=== PATIENT | female | born 1990 | race Caucasian/White ===

== ENCOUNTER 2016-05-11 09:25 | Inpatient (IN) | payer OTHER ==
[~2016-05-11] VITALS: Ht 167.6 cm; Wt 78.0 kg
[~2016-05-11 09:25] MED LIST: ASCORBIC ACID; FERR-74; Ibuprofen PO; PREN1TAB47
[2016-05-11] MEDS ORDERED: fentaNYL-PF 50 mCg/mL 2 mL Inj IVPUSH PRN ×2 (09:55→18:40)
[2016-05-11] MEDS ORDERED: Ondansetron 2 mg/mL 2 mL Inj IVPUSH PRN ×2 (09:55→18:40)
[2016-05-11] MEDS ORDERED: Oxytocin 10 Unit/mL Inj IM PRN (09:55)
[2016-05-11] MEDS ORDERED: Carboprost 250 mCg/mL Inj IM PRN (09:55)
[2016-05-11] MEDS ORDERED: Methylergonovine 0.2 mg/mL Inj IM PRN (09:55)
[2016-05-11] MEDS ORDERED: Hemorrhage Kit, Post Partum XX ONE (09:55)
[2016-05-11] MEDS ORDERED: Oxytocin 30 Units/500 mL LR 30 UNITS in IV Premix 1 EACH IV PRN ×2 (09:55→20:25)
[2016-05-11] MEDS ORDERED: Sodium Chloride LOK Flush 10 mL Syringe IVFLUSH PRN (09:55)
[2016-05-11 10:25] LABS: Mean Corpuscular Hemoglobin 27.8 pg (27.0-35.0); Mean Corpuscular Volume 86.7 fL (81-100)
[2016-05-11] MEDS: Misoprostol 25 mCg/0.25 Tablet VAGINAL SCH ×3 (16:11→23:25)
[2016-05-11] MEDS ORDERED: Lactated Ringer's 500 ML IV ONE (18:39)
[2016-05-11] MEDS ORDERED: fentaNYL 2 mCg/mL-Bupiv 0.125% 100 ML EPIDURAL SCH (18:40)
[2016-05-11] MEDS ORDERED: EPHEDrine Sulfate 50 mg/mL Inj IVPUSH PRN (18:40)
[2016-05-11] MEDS ORDERED: Atropine 1 mg/10 mL (Code) Syringe IVPUSH PRN (18:40)
--- NOTE | 2016-05-11 18:43 | PCM.HPANE ---
Patient Data Date of Service: May 11, 2016 Surgeon Admitting Provider:Maximo Monterroso MD Attending Provider:Maximo Monterroso MD Primary Care Physician:Maximo Monterroso MD Other Provider:Gerardo Thayer Anesthesia Reason for Visit Term Early Labor TERM EARLY LABOR Ht/WT & BMI Body Mass Index Allergies Coded Allergies: Sulfa (Sulfonamide Antibiotics) (Verified Allergy, Unknown, 05/11/16) Diabetes History Hx Diabetes?: No Medications Hypertension Medication: No Reported Medications Vit/Fe Fumarate/Fa-Expunged Drug, Do (-Expunged Drug, Do Not Renew!)1 Tab Tablet Daily 07/01/10 Discontinued Reported Medications [vit c 250 bid] No Conflict Check 07/01/10 Ferrous Sulfate-Expunged Drug, Do Not Renew! (Feosol-Expunged Drug, Do Not Renew !)1 Tab Tablet Bid 07/01/10 Discontinued Scripts [Ibuprofen] (Motrin)600 MG TABLET No Conflict [id number] Mg PO Q6H PRN For Mild Pain Prov:Maximo Monterroso MD 07/02/14 History History of ENT Problems?: No Hx of Heart Problems?: No Hx of Respiratory Problem?: No Hx Neurologic Problems?: No Hx of GI Problems?: No Hx of Problems?: No HX of Peritoneal Dialysis: No Female Hx: Positive for:: Currently Hx Musculoskeletal Problems?: No Hx of Psycho/Social Problems?: No Hx Diabetes: No Smoking Status: Never Smoker Stop/Bang Treated for Sleep Apnea?: No Do You Have a CPAP Machine?: No S-Snoring: Do You Snore Loudly: No T-Tired: feel tired, fatigued: No O-Obsered: Observed not breath: No P-Blood Pressure: treated: No B- Body Mass Index > 35 kg/m2: No A- Age over 50: No N- Neck Large Circumference: No G- Gender Male: No ALEXX Risk Assessment: Low Risk, <3 Yes Risk Assessment Category Category 1A: Patient has history of documented sleep apnea, and HAS NOT received any narcotic, sedative or anesthesia administration during this stay. Category 1B: Patient has history of documented sleep apnea, and HAS received any narcotic , sedative or anesthesia administration during this stay Category 2: Patient has SUSPECTED Obstructive Sleep Apnea, and HAS received any narcotic , sedative or anesthesia administration during this stay. Category 3: Patient has SUSPECTED Obstructive Sleep Apnea and HAS NOT received narcotic, sedative or anesthesia administration during this stay. Category 4: Outpatient in Procedural Areas with known sleep apnea or who screen positive for High Risk via the STOP/BANG questionnaire. Exam Exam General Appearance: Alert, Oriented X3, Cooperative, No Acute Distress HEENT/AIRWAY: MP 2 Lungs: Clear to Auscultation, Normal Air Movement Heart: Exam Unremarkable, Regular Rate/Rhythm, No Murmurs/Rubs/Gallops Meds/Labs/Diagnostics Admission Meds Current Medications Misoprostol (Cytotec) 25 mcg Q4H VAGINAL Last administered on 05/11/16t 16:11; Start 05/11/16 at 15:25 Labs Test 05/11/16 10:10 White Blood Count 11.4th/mm3 (3.8-10.1) Red Blood Count 3.99mil/mm3 (3.90-5.20) Hemoglobin 11.1g/dL (12.0-15.6) Hematocrit 34.6% (35.0-46.0) Mean Corpuscular Volume 86.7fL (81-100) Mean Corpuscular Hemoglobin 27.8pg (27.0-35.0) Mean Corpuscular Hemoglobin Concent 32.1% (32.0-37.0) Red Cell Distribution Width 13.9% (12.3-15.4) Platelet Count 256bil/L (150-400) Plan Impression Patient chart reviewed, patient interviewed and anesthestic plan with risks, benefits, and alternatives discussed, and informed consent obtained. ASA Physical Status: ASA1 Plus Emergency Anesthetic Plan: Epidural Bene/Risks/Altern/Consents: Yes HP Complete Prior to Induction: Yes Viraj Mo MD May 11, 2016 18:42
[2016-05-11] MEDS: Lactated Ringer's 1,000 ML IV SCH ×2 (20:42→22:17)
--- NOTE | 2016-05-11 23:46 | HP ---
[address] [address] HISTORY AND PHYSICAL PATIENT: CLEMENTINA ZAMORA : 1990 MR#: [id number] ADMIT: 05/11/2016 JOB ID: [id number] CHIEF COMPLAINT: "I think I broke my water." HISTORY OF PRESENT ILLNESS: This is a 26-year-old obstetrical patient of mine who is a 7, para 4, at 38 and 2 weeks estimated gestational age who presents to labor and delivery complaining of a big gush of clear fluid from her vagina at about 740 this morning. She has not been having any contractions. She has felt the baby move every day and has no other acute complaints. Upon evaluation in triage, she was found to be grossly ruptured with the baby showing active heart tracing and having very few uterine contractions. Her cervix was noted to be 1 cm long and soft with baby in vertex but high position. She was admitted for expectant management with premature rupture of membranes. PAST OBSTETRICAL HISTORY: Her course has been unremarkable. Her labs: Her blood type is A-positive. Rubella immune. Serology is nonreactive. She is negative to hepatitis B, hepatitis C, HIV and antibody screen. Hematocrit at eight weeks was 38.4 and at 29 weeks was 32. 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 She was chlamydia and gonorrhea negative. On initial evaluation, her Pap showed HPV with ASCUS. She declined colposcopy during the and wishes to pursue it afterwards. Her MSAFP test was performed and was negative. A 28 weeks she had diabetic screen that was negative and antibody screen was negative. GBS test was performed and was negative. PAST OBSTETRICAL HISTORY: The patient has had four term spontaneous vaginal deliveries without problems, the last one was in June 2014. 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 PAST MEDICAL HISTORY: Entirely negative. PAST SURGICAL HISTORY: Past surgical history is also negative. ALLERGIES: The patient has an allergy to SULFA which results in hives. CURRENT MEDICATIONS: None except for vitamins. FAMILY HISTORY: Noncontributory. Specifically, no history of diabetes or hypertension. SOCIAL HISTORY: Patient lives in [place] with her significant other since 2011 and her four children. The patient is a part-time [employer]. She denies smoking, alcohol use or drug use. REVIEW OF SYSTEMS: The patient denies any recent illness. No headache or blurry vision. No abdominal pain. No significant swelling in her feet. No chest pains or palpitations or shortness of breath. She does report that she passed her mucus plug a couple of days ago. OBJECTIVE: Well-developed, well-nourished woman in no apparent distress. Her vital signs are normal. Lungs are clear to auscultation bilaterally. Good air movement. Heart is regular rate and rhythm. No significant murmurs heard. Abdomen is gravid, otherwise benign. Extremities show no cyanosis, clubbing, or edema and normal deep tendon reflexes. heart tracing remains reactive and she is cherelle very irregularly and seems comfortable. Cervical exam upon admission was 1 cm and long and with the baby in vertex but high position. ASSESSMENT AND PLAN: Intrauterine with premature rupture of membranes. Will admit for expectant management. PLAN: Will be to give her 6 hours just to see if she will go into labor naturally and if she does not and her cervix remains unfavorable with a low Shen score, we will begin induction with Cytotec per protocol. This was discussed with Dr. Forbes this afternoon. I discussed routine expectant management issues and procedures. Also discussed the potential complications and the usual obstetric obstetrical procedures to address them but also the possible need for surgical care if becomes needed. I also discussed the possible need for assistance with vacuum extraction and the associated potential complications. All of her questions were answered and she expressed understanding of these issues and is willing to proceed.
[2016-05-12] MEDS: Sodium Chloride LOK Flush 10 mL Syringe IVFLUSH SCH ×3 (00:30→16:30)
[2016-05-12] MEDS: Misoprostol 25 mCg/0.25 Tablet VAGINAL SCH ×5 (03:25→19:25)
[2016-05-12] MEDS: Lactated Ringer's 1,000 ML IV PRN ×2 (07:24→14:58)
[2016-05-12] MEDS ORDERED: Oxytocin 30 Units/500 mL LR 30 UNITS in IV Premix 1 EACH IV PRN ×2 (07:45→14:25)
[2016-05-12] MEDS: Lactated Ringer's 1,000 ML IV SCH ×4 (10:39→22:24)
[2016-05-12] MEDS ORDERED: Sodium Citrate-Citric Acid 15 mL Solution ONE (12:04)
--- NOTE | 2016-05-12 12:25 | PCM.HPANE ---
Patient Data Surgeon Admitting Provider:Maximo Monterroso MD Attending Provider:Maximo Monterroso MD Primary Care Physician:Maximo Monterroso MD Other Provider:[facility] Anesthesia Reason for Visit Term Early Labor TERM EARLY LABOR Ht/WT & BMI Body Mass Index Allergies Coded Allergies: Sulfa (Sulfonamide Antibiotics) (Verified Allergy, Unknown, 05/11/16) Diabetes History Hx Diabetes?: No Medications Hypertension Medication: No Reported Medications Vit/Fe Fumarate/Fa-Expunged Drug, Do (-Expunged Drug, Do Not Renew!)1 Tab Tablet Daily 07/01/10 Discontinued Reported Medications [vit c 250 bid] No Conflict Check 07/01/10 Ferrous Sulfate-Expunged Drug, Do Not Renew! (Feosol-Expunged Drug, Do Not Renew !)1 Tab Tablet Bid 07/01/10 Discontinued Scripts [Ibuprofen] (Motrin)600 MG TABLET No Conflict [id number] Mg PO Q6H PRN For Mild Pain Prov:Maximo Monterroso MD 07/02/14 History History of ENT Problems?: No Hx of Heart Problems?: No Hx of Respiratory Problem?: No Hx Neurologic Problems?: No Hx of GI Problems?: No Hx of Problems?: No HX of Peritoneal Dialysis: No Female Hx: Positive for:: Currently Hx Musculoskeletal Problems?: No Hx of Psycho/Social Problems?: No Hx Diabetes: No Smoking Status: Never Smoker Stop/Bang Treated for Sleep Apnea?: No Do You Have a CPAP Machine?: No S-Snoring: Do You Snore Loudly: No T-Tired: feel tired, fatigued: No O-Obsered: Observed not breath: No P-Blood Pressure: treated: No B- Body Mass Index > 35 kg/m2: No A- Age over 50: No N- Neck Large Circumference: No G- Gender Male: No ALEXX Risk Assessment: Low Risk, <3 Yes Risk Assessment Category Category 1A: Patient has history of documented sleep apnea, and HAS NOT received any narcotic, sedative or anesthesia administration during this stay. Category 1B: Patient has history of documented sleep apnea, and HAS received any narcotic , sedative or anesthesia administration during this stay Category 2: Patient has SUSPECTED Obstructive Sleep Apnea, and HAS received any narcotic , sedative or anesthesia administration during this stay. Category 3: Patient has SUSPECTED Obstructive Sleep Apnea and HAS NOT received narcotic, sedative or anesthesia administration during this stay. Category 4: Outpatient in Procedural Areas with known sleep apnea or who screen positive for High Risk via the STOP/BANG questionnaire. Low Risk, <3 Yes Exam Exam General Appearance: Oriented X3 HEENT/AIRWAY: MP 2 Lungs: Normal Air Movement Heart: Regular Rate/Rhythm Meds/Labs/Diagnostics Admission Meds Current Medications Misoprostol 25 mcg 25 mcg Q4H VAGINAL Last administered on 05/11/16 16:11; Start 05/11/16 at 15:25 Lactated Ringer's (Lr) 1,000 ml @ 125 mls/hr Q8H IV Last administered on 22:17; Start 05/11/16 at 18:39; Stop 05/12/16 at 18:40 Acetaminophen (Tylenol) 650 mg ONCE ONCE PO Last administered on 05/12/16 07: 32; Start 05/12/16 at 07:10; Stop 05/12/16 at 07:11; Status DC Citric Acid/ Sodium Citrate (Bicitra) 30 ml STK-MED ONCE .ROUTE Last administered on 05/12/16 12:14; Start 05/12/16 at 12:04; Stop 05/12/16 at 12:05; Status DC Labs Test 05/11/16 10:10 White Blood Count 11.4th/mm3 (3.8-10.1) Red Blood Count 3.99mil/mm3 (3.90-5.20) Hemoglobin 11.1g/dL (12.0-15.6) Hematocrit 34.6% (35.0-46.0) Mean Corpuscular Volume 86.7fL (81-100) Mean Corpuscular Hemoglobin 27.8pg (27.0-35.0) Mean Corpuscular Hemoglobin Concent 32.1% (32.0-37.0) Red Cell Distribution Width 13.9% (12.3-15.4) Platelet Count 256bil/L (150-400) Plan Impression Patient chart reviewed, patient interviewed and anesthestic plan with risks, benefits, and alternatives discussed, and informed consent obtained. ASA Physical Status: ASA2 Mod Systemic Disease Anesthetic Plan: Epidural Bene/Risks/Altern/Consents: Yes HP Complete Prior to Induction: Yes José Miguel Rose MD May 12, 2016 12:25
[2016-05-12] MEDS ORDERED: Morphine PF 1 mg/mL 10 mL Inj ONE (12:30)
[2016-05-12] MEDS ORDERED: CeFAZolin Inj 2 gm / 50mL D5W IV ONE (12:39)
[2016-05-12] MEDS ORDERED: Morphine PF 1 mg/mL 10 mL Inj EPIDURAL ONE (12:55)
[2016-05-12] MEDS ORDERED: EPHEDrine Sulfate 50 mg/mL Inj IVPUSH PRN (12:55)
[2016-05-12] MEDS ORDERED: HYDROmorphone 1 mg/mL Inj IVPUSH PRN (12:55)
[2016-05-12] MEDS ORDERED: Phenylephrine/NS-PF 100 mCg/mL 5 mL Syringe IVPUSH PRN (12:55)
[2016-05-12] MEDS ORDERED: Ondansetron 2 mg/mL 2 mL Inj IVPUSH PRN (12:55)
[2016-05-12] MEDS ORDERED: fentaNYL-PF 50 mCg/mL 2 mL Inj IVPUSH PRN (12:55)
[2016-05-12] MEDS ORDERED: Atropine 0.4 mg/mL Inj IV PRN (12:55)
[2016-05-12] MEDS ORDERED: MetoCLOpramide 5 mg/mL 2 mL Inj IVPUSH PRN (12:55)
[2016-05-12] MEDS ORDERED: Phenylephrine/NS-PF 100 mCg/mL 5 mL Syringe IVPUSH ONE (14:12)
[2016-05-12] MEDS ORDERED: Ondansetron 2 mg/mL 2 mL Inj ONE (14:12)
[2016-05-12] MEDS ORDERED: MetoCLOpramide 5 mg/mL 2 mL Inj ONE (14:12)
[2016-05-12] MEDS ORDERED: Lidocaine 2%-Epi 1:100,000 20 mL Inj ONE (14:12)
[2016-05-12] MEDS ORDERED: Propofol 10,000 mCg/mL 20 mL Inj ONE (14:12)
[2016-05-12] MEDS ORDERED: Dexamethasone 4 mg/mL Inj ONE (14:12)
--- NOTE | 2016-05-12 14:24 | PCM.ANEP1 ---
Post Anesthesia Phase 1 PACU Phase 1 Assessment Date of Service: May 11, 2016 Anesthetic Administered: Epidural Level of Alertness: Sleepy, easy to arouse Pain: No Pain Scale Score: 4 Nausea or Vomiting: No Oxygen Delivery: Room Air Lungs: Normal Air Movement José Miguel Rose MD May 12, 2016 14:24
--- NOTE | 2016-05-12 14:24 | PCM.ANEP2 ---
Post Anesthesia Evaluation ASA/CMS Post Anesthesia VS in Patient's Normal Range?: Yes Resp Stable; Airway Patent?: Yes CV Function & Hydration Stable: Yes Mental Status Recovered?: Yes Pain control Satisfactory?: Yes N/V Control Satisfactory?: Yes José Miguel Rose MD May 12, 2016 14:24
[2016-05-12] MEDS ORDERED: Carboprost 250 mCg/mL Inj IM PRN (14:25)
[2016-05-12] MEDS ORDERED: Hemorrhage Kit, Post Partum XX ONE (14:25)
[2016-05-12] MEDS ORDERED: Acetaminophen IV 1,000 MG in IV Premix 1 EACH IV PRN (14:25)
[2016-05-12] MEDS ORDERED: Oxytocin 10 Unit/mL Inj IM PRN (14:25)
[2016-05-12] MEDS ORDERED: Methylergonovine 0.2 mg/mL Inj IM PRN (14:25)
[2016-05-12] MEDS ORDERED: LANOlin HPA 7 Gm Ointment TOPICAL PRN (14:25)
[2016-05-12] MEDS ORDERED: Sodium Chloride LOK Flush 10 mL Syringe IVFLUSH PRN (14:25)
--- NOTE | 2016-05-12 15:36 | HP ---
[address] [address] HISTORY AND PHYSICAL PATIENT: CLEMENTINA ZAMORA : 1990 MR#: [id number] ADMIT: 05/11/2016 JOB ID: [id number] HISTORY OF PRESENT ILLNESS: The patient is a 26-year-old, 5, para 4, with estimated due date May 23, 2016, who presented to labor and delivery with spontaneous rupture of membranes at 7:40 a.m. on May 11, 2016. The patient was under care of Dr. Lu. Pitocin was started for augmentation of labor. She progressed to 4 cm at around midnight of May 11, 2016, subsequently and despite of contractions every 2 minutes and Pitocin running at 9 milliunits per minute the patient did not progress in dilation, stayed 4 cm dilated. Treatment options were discussed with the patient, and she preferred to go for primary low transverse delivery. The patient did not want any sterilization procedure. She verbalized her desire to have one more child. care was uncomplicated. LABORATORIES: She is group B strep negative. Blood group and type A-positive. Rubella immune. PAST OBSTETRICAL HISTORY: She had prior four spontaneous vaginal deliveries that were uncomplicated. ALLERGIES: NKDA. FAMILY HISTORY: Noncontributory. SOCIAL HISTORY: The patient denies smoking, alcohol, illicit or recreational drug use. PHYSICAL EXAMINATION: Vital signs: Temperature 36.7, blood pressure 122/82, respiratory rate 18. HEENT: PERRLA. Chest: Clear bilaterally. Good respiratory effort. Cardiovascular system: Regular rate and rhythm. Abdomen is gravid, nondistended, nontender. Presentation is cephalic, verified by the ultrasound and Shawn maneuvers. Pelvic exam: The cervix is 3-4 cm dilated, 80% effaced, station -3. Clear amniotic fluid. Extremities: No pitting edema. ASSESSMENT AND PLAN: A 26-year-old, 5, para 4, at 38 weeks and three days with premature rupture of membranes, prolonged rupture of membranes, arrest of dilation. She is going for primary low transverse delivery. Management options discussed with the patient, and informed consent was signed. She was explained the risks and benefits of delivery, the risks including, but not limited to, bleeding, infection, minor lacerations to the , problems with wound healing, possible damage to adjacent organs or structures in rare circumstances, prolonged recovery and prolonged hospital stay. All the questions were answered. An informed consent was signed.
--- NOTE | 2016-05-12 15:42 | OP ---
[address] [address] OPERATIVE REPORT PATIENT: CLEMENTINA ZAMORA : 1990 MR#: [id number] ADMIT: 05/11/2016 JOB ID: [id number] CORRECTED REPORT: DATE OF SURGERY: 05/12/2016 PREOPERATIVE DIAGNOSIS(ES): five, para four, at 38 weeks and 3 days. Premature rupture of membranes. Failed induction of labor. Arrest of dilation. POSTOPERATIVE DIAGNOSIS(ES): five, para four, at 38 weeks and 3 days. Premature rupture of membranes. Failed induction of labor. Arrest of dilation. SURGEON: Chandra Tavarez MD. INSTRUMENT ASSEMBLY SUPERVISOR: Maximo Monterroso MD. Assistance of Dr. Monterroso was necessary for proper exposure and handling the tissues and in delivery of the . ANESTHESIA: Epidural was dosed to a surgical level. ESTIMATED BLOOD LOSS: 800 mL. ESTIMATED URINE OUTPUT: 200 mL. FLUIDS: 1100 mL of lactated Ringer. COMPLICATIONS: None. FINDINGS: Normal appearance of uterus and adnexa. Delivered male with weight 8 pounds and 6 ounces. Apgars 9 at one minute and 9 at five minutes. PROCEDURE: The patient was brought to the operating room, where she underwent dosing of epidural anesthesia to a surgical level. She was prepped and draped in the usual surgical fashion. She was placed in the dorsal supine position with a leftward tilt. She received preoperative antibiotics. Time-out was performed verifying correct patient, correct procedure. Wilma Hugger was used to maintain adequate core body temperature. Pfannenstiel skin incision was made 2 cm above the pubic bone and extended to the underlying layer of rectus muscle fascia using Bovie. The rectus muscle fascia was incised in midline with the Bovie and the incision was then laterally extended using Reddy scissors. The lower aspect of the incision was grasped with two Dannie clamps and the rectus muscle fascia was from the underlying rectus muscle using Reddy scissors. In a similar fashion, the upper aspect of the incision was grasped with two Dannie clamps and the rectus muscle fascia was from the underlying rectus muscle using Reddy scissors and moist laparotomy sponge. The rectus muscles were in the midline. The peritoneum was identified, tented up with two Prabha clamps, and entered sharply with Metzenbaum scissors. The peritoneal incision was then laterally extended. Using scalpel lower segment transverse uterine incision was made and extended laterally with the bandage scissors. Allis clamp was used to isolate the membranes, the head of the was identified. The bladder blade was removed and male was atraumatically delivered with Apgars nine and nine and weight 8 pounds and 6 ounces. Delayed cord clamping was done for 60 seconds. Following that the was handed off to the respiratory therapist. Cord blood was sent. The placenta was then removed by fundal massage and gentle traction. The uterus was exteriorized and cleared from all the blood clots and debris using dry laparotomy sponge. The uterine incision was repaired with 0 Monocryl in two layers. The patient received 250 mcg of Hemabate for better hemostasis. The pelvis was irrigated with warm normal saline, good hemostasis was achieved. The uterus was repositioned back into the abdomen. The peritoneum was reapproximated with 2-0 Vicryl. Two interrupted 2-0 Vicryl sutures were placed in the rectus muscles for reapproximation. The rectus muscle fascia was closed with 0-Vicryl. The subcuticular tissue and Rochelle fascia was reapproximated with four interrupted 3-0 Vicryl sutures. The skin was closed in subcuticular fashion using 4-0 Monocryl. Dermabond glue was applied. Steri-Strips were applied. Hemostatic dressing was applied. The patient was repositioned back into a supine position. She tolerated the procedure well and was transferred to the recovery room in stable condition. Corrected by THU 07/01/16 at 8:11am DOS.
[2016-05-13] MEDS: Lactated Ringer's 1,000 ML IV SCH (01:17)
[2016-05-13 07:31] LABS: Mean Corpuscular Hemoglobin 28.2 pg (27.0-35.0); Mean Corpuscular Volume 87.5 fL (81-100)
--- NOTE | 2016-05-13 07:45 | PCM.PNOBPP ---
Subjective Date of Service May 13, 2016 Post : Primary Cesere[place] Delivery Subjective 26-year-old post day one after primary section for failed induction of labor and arrest of dilation. Procedure uncomplicated and male delivered with Apgars of 9 and 9. Patient doing well this morning. Pain well controlled currently with Toradol but will switch to oral medications today. Patient able to ambulate and urinate without difficulties. No bowel movement but passing flatus. Patient is breast feeding without difficulties. She plans to use an IUD for contraception and has discussed this with Dr. Monterroso. Tolerated lady crackers overnight without nausea or vomiting. Lochia: Normal Pain Management: IV Push (Toradol given overnight. We will switch to PO pain meds.), Good Pain Control Gastrointestinal: No N/V, Passing Flatus Postop Activity: Ambulating Independently Group B Strep Results: Negative Rubella: Immune Blood Type: A RH Type: Positive Labs Laboratory Tests 05/13/16 07:15: White Blood Count 19.7, Red Blood Count 3.19, Hemoglobin 9.0, Hematocrit 27.9, Mean Corpuscular Volume 87.5, Mean Corpuscular Hemoglobin 28.2, Mean Corpuscular Hemoglobin Concent 32.3, Red Cell Distribution Width 13.7, Platelet Count 218 Exam Vital Signs Vital Signs: VS reviewed, stable Exam Abdomen: Uterus is, Fundus firm, Abdomen appropriately tender, Other ( Pfannenstiel incision with dressing clean, dry, and intact) Perineum: Intact : UOP has been, Voiding without difficulty Extremities: Edema 1+ Lungs: Clear to Auscultation Heart: Regular Rate/Rhythm, Normal S1, Normal S2 General: Alert, Oriented X3, Cooperative, No Acute Distress OB Post Assessment/Plan Assessment 1. section due to failed induction of labor and arrest of dilation. 2. day 1. Pain Evaluation: Adequate Pain Control Post plan: Continue routine post care, Discharge home tomorrow Plan: 1. She is doing well and meeting all goals. Will continue routine care at this time. 2. Pain medication to be switched from Toradol to PO pain medications. 3. Contraception planned with IUD at follow-up appointment with Dr. Monterroso in 4 weeks. 4. Discharge likely tomorrow. Attending Statement I saw and evaluated patient. I agree with above plan. ANKUSH CATHERINE DO May 13, 2016 07:45 Maine Forbes MD May 30, 2016 09:25
[2016-05-13] MEDS: oxyCODONE-Acetamin 5-325 mg Tablet PO PRN ×5 (09:20→22:20)
[2016-05-14] MEDS: oxyCODONE-Acetamin 5-325 mg Tablet PO PRN ×3 (02:25→12:21)
[2016-05-14 06:55] LABS: BASOPHILS % (AUTO) 0.3 % (0-3); EOSINOPHILS % (AUTO) 1.3 % (0-5); MONOCYTES % (AUTO) 7.2 % (4-12); Mean Corpuscular Hemoglobin 28.3 pg (27.0-35.0); Mean Corpuscular Volume 89.4 fL (81-100); NEUTROPHILS % (AUTO) 57.4 % (40-74); Platelet Count 238 bil/L (150-400)
[2016-05-14] MEDS ORDERED: FERR-83 PO (07:21)
[2016-05-14] MEDS ORDERED: ASCO-294 PO (07:21)
[2016-05-14] MEDS ORDERED: OXYC1TAB24 PO (07:21)
[2016-05-14] MEDS ORDERED: IBUP800T28 PO (07:21)
[2016-05-14] MEDS ORDERED: DOCU-41 PO (07:21)
--- NOTE | 2016-05-14 07:27 | PCM.DIOB ---
Obstetrical Disch Instruction Date of Service: May 14, 2016 Dates of Hospitalization Date of Hospital Admission May 11, 2016 at 09:49 Providers Admitting Physician: Maximo Monterroso MD Primary Care Physician: Maximo Monterroso MD Attending Physician: Maximo Monterroso MD Discharge Diagnosis Discharge Diagnosis female day 2 after section due to failed induction of labor and arrest of dilation Problems: Diet Discharge Diet: No restrictions Activity Discharge Activity-General: Pelvic Rest for 6 weeks, Other (no lifting more than a gallon of milk for the next 6 weeks) Dressing and Incisional Care Dressing Care: Keep dressing clean, dry & intact, Allow Steri Stripes to fall off Hygiene: May shower, DO NOT soak incision under water, NO bathtub, hot tub or whirlpool, Perineal care Additional Instructions Discharge Instructions Continue your vitamin. Please take the iron and vitamin c together for your anemia. Do not take more pain medication (Percocet) than is necessary -- less is better. Percocet pills have Tylenol (acetaminophen) in them at 325mg per pill. Do not take Tylenol in addition to your pain medication but should take one or the other. Both iron and Percocet can give you constipation so you have also been given a prescription for docusate to keep you regular. Be sure to follow up in 2 weeks and then again in 6 weeks at [facility]. Pelvic rest for 6 weeks (nothing per vagina including intercourse, tampons) If you have a fever greater than 100.4, please call [facility]. There is always someone induction heat treater to talk to. If you have an increase in bleeding, call [facility]. If you have a lot of bleeding suddenly, especially if you have symptoms of dizziness & weakness with it, get emergency help. If you start experiencing extreme depression, especially if you feel that you are a danger to yourself or your family, seek emergency help. You have been through a lot -- BE SURE TO TAKE CARE OF YOURSELF. You have been sent home with the following prescriptions: - Percocet 5/325 mg, take 1 tab q4-6h PO PRN for pain - Colace 100 mg BID PO PRN for constipation - Ferrous sulfate 325 mg PO daily - Vitamin C 500 mg PO daily. Take with iron - Ibuprofen 800mg take 1 tab q8h PO PRN for pain Follow Up Plan Follow-up Provider (F9): Chandra Tavarez MD Follow-up appointment: Weeks (2) Call your provider for: Fever or Chills, Shortness of breath, Heavy vaginal bleeding, Epigastric pain, Excessive constipation, Vaginal discomfort, Red painful breasts ANKUSH CATHERINE DO May 14, 2016 07:15
--- NOTE | 2016-05-14 09:17 | PCM.DC.OB ---
Obstetrical Discharge Summary Date of Service May 14, 2016 Date of hospital admission May 11, 2016 at 09:49 Date of Discharge: May 14, 2016 Providers Admitting Physician: Maximo Burnham MD Primary Care Physician: Maximo Burnham MD Attending Physician: Maximo Burnham MD Diagnosis at Time of Discharge female day 2 after section due to failed induction of labor and arrest of dilation Problems: Invasive procedures Date of Procedure: May 12, 2016 Brief History and Physical: 26-year-old post day 2 after primary section for failed induction of labor and arrest of dilation. Patient doing well and is comfortable with discharge. Pain well controlled with Percocet. Patient able to ambulate and urinate without difficulties. Patient is breast feeding exclusively and baby is latching without difficulty. She plans to use an IUD for contraception and has discussed this with Dr. Burnham (PCP). Tolerating diet without nausea or vomiting. Bleeding has slowed. Physical Exam: Vital Signs: VS reviewed, stable Abdomen: Uterus is, Fundus firm, Abdomen appropriately tender, Other ( Pfannenstiel incision with dressing clean, dry, and intact) Perineum: Intact : UOP has been, Voiding without difficulty Extremities: Edema 1+ Lungs: Clear to Auscultation Heart: Regular Rate/Rhythm, Normal S1, Normal S2 General: Alert, Oriented X3, Cooperative, No Acute Distress Ascorbate Calcium (Vitamin C) 500 Mg Tablet 500 MG PO DAILY Prescribed by: ANKUSH CATHERINE DO Docusate Sodium (Colace) 100 Mg Capsule 100 MG PO BID Prescribed by: ANKUSH CATHERINE DO Ferrous Sulfate (Ferrous Sulfate) 325 Mg Tablet 325 MG PO DAILY Prescribed by: ANKUSH CATHERINE DO Ibuprofen (Ibuprofen) 800 Mg Tablet 800 MG PO Q6H PRN PRN For Pain Prescribed by: ANKUSH CATHERINE DO Vit/Fe Fumarate/Fa-Expunged Drug, Do (-Expunged Drug, Do Not Renew!) 1 Tab Tablet DAILY (Reported) Last Taken: Unknown Dose on Unknown Date & Time oxyCODONE-Acetaminophen 5- 325 mg (oxyCODONE-Acetaminophen 5-325 mg) 1 Each Tablet 1 TAB PO Q4H PRN PRN For Pain Prescribed by: ANKUSH CATHERINE DO Discontinued Medications ([vit c 250 bid]) (Reported) ([Ibuprofen]) 600 MG TABLET 600 MG PO Q6H PRN PRN For Mild Pain Prescribed by: MAXIMO BURNHAM MD Ferrous Sulfate-Expunged Drug, Do Not Renew! (Feosol-Expunged Drug, Do Not Renew !) 1 Tab Tablet BID (Reported) Discharge Medications: - Percocet 5/325 mg, take 1 tab q4-6h PO PRN for pain - Colace 100 mg BID PO PRN for constipation - Ferrous sulfate 325 mg PO daily - Vitamin C 500 mg PO daily. Take with iron - Ibuprofen 800mg take 1 tab q8h PO PRN for pain Follow-up plan Follow-up in 2 weeks and again in [address] [facility] Discharge Diet: No restrictions Discharge Activity-General: Pelvic Rest for 6 weeks Patient instructions Continue your vitamin. Please take the iron and vitamin c together for your anemia. Do not take more pain medication (Percocet) than is necessary -- less is better. Percocet pills have Tylenol (acetaminophen) in them at 325mg per pill. Do not take Tylenol in addition to your pain medication but should take one or the other. Both iron and Percocet can give you constipation so you have also been given a prescription for docusate to keep you regular. Be sure to follow up in 2 weeks and then again in 6 weeks at [facility]. Pelvic rest for 6 weeks (nothing per vagina including intercourse, tampons) If you have a fever greater than 100.4, please call [facility]. There is always someone photographic reproduction technician to talk to. If you have an increase in bleeding, call [facility]. If you have a lot of bleeding suddenly, especially if you have symptoms of dizziness & weakness with it, get emergency help. If you start experiencing extreme depression, especially if you feel that you are a danger to yourself or your family, seek emergency help. You have been through a lot -- BE SURE TO TAKE CARE OF YOURSELF. Attending Statement: The patient was seen and examined and I agree with the history, exam and plan as outlined in the note above. Discharge home today, f/u with Dr. Burnham for care, and in [facility] [place] in two weeks for incision check. ANKUSH CATHERINE DO May 14, 2016 07:29 Christine Emery MD May 15, 2016 11:56
[2016-05-14 11:17] VITALS: BP 109/63; PULSE 60; RESP 18
[2016-05-14] MEDS ORDERED: Carboprost 250 mCg/mL Inj IM ONE (14:12)
== END 2016-05-14 14:13 | disposition home or self-care (01) | DRG 766 ==
LOC: FBCO 09:25 → FBC 09:49
PROVIDERS: ADMIT Family Medicine; ATTEND Family Medicine
PROC: 10D00Z1 Extraction of Products of Conception, Low, Open Approach (ICD-10-PCS; principal; 2016-05-12 12:46)
DX: O62.1 Secondary uterine inertia (principal); O42.12 Full-term premature rupture of membranes, onset of labor more than 24 hours following rupture; Z37.0 Single live birth; Z3A.38 38 weeks gestation of pregnancy